=== PATIENT | female | born 1980 | race African-American/Black ===

== ENCOUNTER 2018-05-15 13:15 | Emergency (ER) | payer SELFPAY ==
[~2018-05-15] VITALS: Ht 165.1 cm; Wt 90.7 kg
[2018-05-15 13:29] VITALS: BP 130/70
[2018-05-15] MEDS ORDERED: CYCL10TA2 PO (14:03)
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
== END 2018-05-15 14:07 | disposition home or self-care (01) ==
LOC: ER 13:15
DX: S20.219A Contusion of unspecified front wall of thorax, initial encounter (principal); Z88.0 Allergy status to penicillin; Z88.6 Allergy status to analgesic agent; Z88.5 Allergy status to narcotic agent; V43.52XA Car driver injured in collision with other type car in traffic accident, initial encounter; Y93.89 Activity, other specified; Y92.410 Unspecified street and highway as the place of occurrence of the external cause; Y99.8 Other external cause status
CPT/HCPCS: 99283